=== PATIENT | male | born 1950 | race Caucasian/White ===

== ENCOUNTER → 2018-09-18 | Outpatient (CLI) | payer MEDICARE | END | disposition home or self-care (01) | LOC: PCVCCLINIC 13:00 | PROVIDERS: ATTEND Internal Medicine | DX: I25.10 Atherosclerotic heart disease of native coronary artery without angina pectoris (principal); I10 Essential (primary) hypertension; E78.5 Hyperlipidemia, unspecified; K21.9 Gastro-esophageal reflux disease without esophagitis; Z87.891 Personal history of nicotine dependence; Z79.82 Long term (current) use of aspirin | CPT/HCPCS: 93005; G0463 ==

== ENCOUNTER → 2018-10-30 | Outpatient (CLI) | payer MEDICARE ==
--- NOTE | 2018-10-30 16:24 | PCVCIMAG ---
APPROVED REPORT Study performed: 10/30/2018 12:38:27 Exam: Stress Echocardiogram Indication: Dyspnea , CAD s/p NE, htn, hlp Patient Location: Echo lab Stress Nurse: Amanda Mix RN Status: routine Ht: 5 ft 6 in HR: 62 bpm BP: 152/84 mmHg Rhythm: NSR Procedure The patient underwent an Exercise Stress Test using the Ivan Protocol. Blood pressure, heart rate, and EKG were monitored. An Echocardiogram was performed by casting technician in four stages in quad fashion. At peak stress, four selected images were obtained and placed side by side with resting images for comparison. Stress Test Details Stress Test: Exercise stress testing was performed using a Ivan protocol. HR Resting HR: 62 bpmMax Heart Rate (APMHR): 151 bpm Max HR Achieved: 127 bpmTarget HR (85% APMHR): 128 bpm % of APMHR: 84 Recovery HR: 78 bpm HR response to stress: Normal HR response to stress BP Resting BP: 152/84 mmHg Max BP: 202/90 mmHg Recovery BP: 154/82 mmHg BP response to stress: Normal blood pressure response to stress. ECG Resting ECG: Sinus Rhythm Stress ECG: Sinus Rhythm ST Change: Normal Maximum ST Deviation: 0 mm Arrhythmia: PACs Recovery ECG: Sinus Rhythm Recovery ST Change: Normal Recovery ST Deviation: 0 mm Recovery Arrhythmia: None Clinical Reason for Termination: Maximal effort, Dyspnea Stress Symptoms: Dyspnea Exercise duration: 9 min sec Highest Stage Achieved: Stage 3: 3.4 mph at 14% grade. Exercise capacity: 10.4 METs Overall Exercise Capacity for Age: Good Scale: Active Angina Score: None Stress ECG Conclusion Clinical: Non-ischemic ECG: Non-ischemic Rodas Treadmill Score is 9.0 which is Low risk. Pre-Stress Echo The resting Echocardiogram showed normal left ventricular contractility with an estimated Ejection Fraction of about >55%. Normal wall motion in all segments on baseline images. Post-Stress Echo The stress Echocardiogram showed normal left ventricular contractility with an estimated Ejection Fraction of about 65%. Normal augmentation of wall motion in all segments on post stress images. Clinical No clinical or ECG evidence for ischemia. Conclusion Clinical Response: Non-ischemic Exercise Capacity: Average Stress ECG Response: Non-ischemic Stress Echo Images: Non-ischemic The left ventricle is normal in size and wall thickness in both the rest and stress images. Ascending aorta measures 4.1 cm. Normal stress echocardiogram with maximal exercise stress. Other Information Study Quality: Adequate <Conclusion> The left ventricle is normal in size and wall thickness in both the rest and stress images. Ascending aorta measures 4.1 cm. Normal stress echocardiogram with maximal exercise stress.
== END | disposition home or self-care (01) ==
LOC: PCVCIMAG 12:39
PROVIDERS: ATTEND Internal Medicine
DX: I25.10 Atherosclerotic heart disease of native coronary artery without angina pectoris (principal); I10 Essential (primary) hypertension; E78.5 Hyperlipidemia, unspecified; R06.00 Dyspnea, unspecified
CPT/HCPCS: 93325; 93351